=== PATIENT | female | born 1995 | race American Indian/Alaskan Native ===

== ENCOUNTER 2019-01-12 19:15 | Emergency (ER) | payer OTHER ==
--- NOTE | 2019-01-12 19:37 | Emergency Department Report ---
Chief Complaint: Vaginal Bleeding Stated Complaint: ABDOMINAL CRAMPS, VAGINAL BLEEDING Time Seen by Provider: 01/12/19 19:33 - HPI History of Present Illness: This is a 23 y.o. female that presents with vaginal bleeding and passing large clots during . LMP 12/07/18, A0. She is also complaining of abdominal pain. Patient reports bleeding started yesterday. She only had to wear panty liners yesterday but today bleeding increased to pads. She is changing pads every 30 minutes. - ROS Review of Systems: abdominal pain and vaginal bleeding. - Exam Vital Signs: Vital Signs 01/12/19 19:22 Temperature 97.9 F Pulse Rate 74 Respiratory 18 Rate Blood Pressure 108/79 [Right] O2 Sat by Pulse 99 Oximetry MSE screening note: Focused history and physical exam performed. Due to findings the following was ordered: Labs and US. Fast track for further evaluation. ED Disposition for MSE Condition: Stable
[2019-01-12 20:02] LABS: Basophils % (Auto) 0.5 % (0.0-1.8); Eosinophils # (Auto) 0.3 K/mm3 (0.0-0.4); Eosinophils % (Auto) 5.9 % (0.0-4.3); Hematocrit 32.3 % (30.3-42.9); Hemoglobin 10.4 gm/dl (10.1-14.3); Lymphocytes # (Auto) 1.4 K/mm3 (1.2-5.4); Mean Corpuscular HGB Conc 32 % (30-34); Mean Corpuscular Volume 75 fl (79-97); Monocytes # (Auto) 0.7 K/mm3 (0.0-0.8); Monocytes % (Auto) 14.3 % (0.0-7.3); Platelet Count 310 K/mm3 (140-440); Red Blood Count 4.32 M/mm3 (3.65-5.03); Red Cell Distribution Width 18.7 % (13.2-15.2)
[2019-01-12 20:22] LABS: Bacteria,Urine 1+ /HPF (Negative); Bilirubin,Urine NEG (Negative); Blood,Urine LG (Negative); Color,Urine Red (Yellow); RBC,Urine > 182.0 /HPF (0.0-6.0); Urobilinogen,Urine < 2.0 mg/dL (<2.0)
--- NOTE | 2019-01-12 21:33 | Emergency Department Report ---
ED HPI - General Chief complaint: Vaginal Bleeding Stated complaint: ABDOMINAL CRAMPS, VAGINAL BLEEDING Time Seen by Provider: 01/12/19 21:20 Source: patient Mode of arrival: Ambulatory Limitations: No Limitations - History of Present Illness Initial comments: Patient is a 23-year-old female with evidence of emergency with vaginal bleeding and abdominal cramping. Patient states crepitus or lower abdominal area. Patient states that she took home test January 06 and was positive. Patient has not received care. Patient has not had an ultrasound. Patient states the pain/cramps is 3-4 out of 10. Patient states they are worse with movement and better with rest. Patient states she is passing clots. MD Complaint: abdominal pain, vaginal bleeding, "contractions" -: Sudden Location: pelvis, abdomen Radiation: suprapubic Severity: moderate Severity scale (0 -10): 3 Quality: cramping Consistency: intermittent Improves with: rest Worsens with: movement Associated symptoms: vaginal bleeding Vaginal bleeding: clots :: Yes Pre- care: none - Related Data Previous Rx's Medication Instructions Recorded Last Taken Type Doxycycline [Vibramycin CAP] 100 mg PO Q12HR #20 capsule 07/02/15 Unknown Rx Ferrous Sulfate [Feosol 325 MG tab] 325 mg PO BID #60 tablet 07/02/15 Unknown Rx metroNIDAZOLE [Flagyl TAB] 500 mg PO Q12HR #20 tab 07/02/15 Unknown Rx Acetaminophen/Codeine [Tylenol 1 tab PO QHS PRN #15 tab 11/10/15 Unknown Rx /Codeine # 3 tab] Fluticasone [Flonase] 2 spray NS QDAY #1 bottle 11/10/15 Unknown Rx Ibuprofen [Motrin 800 MG tab] 800 mg PO TID PRN #21 tablet 11/10/15 Unknown Rx Sulfamethoxazole/Trimethoprim 1 each PO BID #20 tablet 11/10/15 Unknown Rx [Bactrim DS TAB] Cyclobenzaprine HCl [Flexeril 5 MG 5 mg PO TID #10 tab 08/19/17 Unknown Rx TAB] Naproxen [Naprosyn] 375 mg PO BID #10 tablet 08/19/17 Unknown Rx Allergies Allergy/AdvReac Type Severity Reaction Status Date / Time No Known Allergies Allergy Verified 08/19/17 15:17 ED Review of Systems ROS: Stated complaint: ABDOMINAL CRAMPS, VAGINAL BLEEDING Other details as noted in HPI Constitutional: denies: chills, fever Eyes: denies: eye pain, eye discharge, vision change ENT: denies: ear pain, throat pain Respiratory: denies: cough, shortness of breath, wheezing Cardiovascular: denies: chest pain, palpitations Endocrine: no symptoms reported Gastrointestinal: abdominal pain. denies: nausea, diarrhea Genitourinary: abnormal menses. denies: urgency, dysuria, discharge Musculoskeletal: denies: back pain, joint swelling, arthralgia Skin: denies: rash, lesions Neurological: denies: headache, weakness, paresthesias Psychiatric: denies: anxiety, depression Hematological/Lymphatic: denies: easy bleeding, easy bruising ED Past Medical Hx - Past Medical History Previous Medical History?: Yes Additional medical history: L knee injury, previous with no follow-up - Surgical History Past Surgical History?: Yes - Family History Family history: no significant - Social History Smoking Status: Former Smoker Substance Use Type: None - Medications Home Medications: Home Medications Medication Instructions Recorded Confirmed Last Taken Type Doxycycline [Vibramycin CAP] 100 mg PO Q12HR #20 capsule 07/02/15 07/09/16 Unknown Rx Ferrous Sulfate [Feosol 325 MG tab] 325 mg PO BID #60 tablet 07/02/15 07/09/16 Unknown Rx metroNIDAZOLE [Flagyl TAB] 500 mg PO Q12HR #20 tab 07/02/15 07/09/16 Unknown Rx Acetaminophen/Codeine [Tylenol 1 tab PO QHS PRN #15 tab 11/10/15 07/09/16 Unknown Rx /Codeine # 3 tab] Fluticasone [Flonase] 2 spray NS QDAY #1 bottle 11/10/15 07/09/16 Unknown Rx Ibuprofen [Motrin 800 MG tab] 800 mg PO TID PRN #21 tablet 11/10/15 07/09/16 Unknown Rx Sulfamethoxazole/Trimethoprim 1 each PO BID #20 tablet 11/10/15 07/09/16 Unknown Rx [Bactrim DS TAB] Cyclobenzaprine HCl [Flexeril 5 MG 5 mg PO TID #10 tab 08/19/17 Unknown Rx TAB] Naproxen [Naprosyn] 375 mg PO BID #10 tablet 08/19/17 Unknown Rx ED Physical Exam - General Limitations: No Limitations General appearance: alert, in no apparent distress - Head Head exam: Present: atraumatic, normocephalic - Eye Eye exam: Present: normal appearance - ENT ENT exam: Present: mucous membranes moist - Neck Neck exam: Present: normal inspection - Respiratory Respiratory exam: Present: normal lung sounds bilaterally. Absent: respiratory distress - Cardiovascular Cardiovascular Exam: Present: regular rate, normal rhythm. Absent: systolic murmur, diastolic murmur, rubs, gallop - GI/Abdominal GI/Abdominal exam: Present: soft, tenderness (suprapubic tenderness), normal bowel sounds - Extremities Exam Extremities exam: Present: normal inspection - Back Exam Back exam: Present: normal inspection - Neurological Exam Neurological exam: Present: alert, oriented X3 - Psychiatric Psychiatric exam: Present: normal affect, normal mood - Skin Skin exam: Present: warm, dry, intact, normal color. Absent: rash ED Course Vital Signs 01/12/19 01/12/19 19:22 21:33 Temperature 97.9 F 98.7 F Pulse Rate 74 75 Respiratory 18 16 Rate Blood Pressure 108/79 102/75 [Right] O2 Sat by Pulse 99 100 Oximetry - Reevaluation(s) Reevaluation #1: Patient states she is feeling better. Patient is pain-free. Patient will be discharged home. Discussed all results with patient. 01/12/19 23:56 Discussed all results to patient. Patient is stable for discharge. Patient given discharge instructions . patient voiced understanding of discharge instructions. 01/13/19 00:50 - Consultations Consultation #1: Discussed case with Dr. Milian. Dr. Milian states the patient is stable for discharge. Dr. Milian wants to see the patient at 10 AM on Tuesday and her [place] office. Information will be given to the patient 01/13/19 00:02 ED Medical Decision Making - Lab Data Result diagrams: 01/12/19 19:40 - Radiology Data Radiology results: report reviewed PROCEDURE: US OB TRANSVAGINAL TECHNIQUE: Real-time transabdominal and transvaginal sonography of the uterus, placenta, amniotic fluid, adnexa, and fetus was performed with image documentation. Measurements were obtained to determine age/size. M-mode Doppler was used to document heartbeat. ADDITIONAL GESTATION: None. HISTORY: vaginal bleeding during COMPARISONS: None . FINDINGS: Uterus size is 8.1 x 4.9 x 6.6 cm. The endometrial thickness is 5 mm. There is no evidence of a gestational sac on this study. Both ovaries are identified and have a normal size and appearance. There is some fluid in the lower pelvis. The evaluation may indicate multiple presentations including early , spontaneous and failure. Ectopic is not excluded on the basis of this signal examination. Follow-up studies may include serial beta-hCG levels and possibly repeat ultrasound IMPRESSION: The uterus and both ovaries have a normal appearance on today's study. There is no evidence of a gestational sac within the uterus. Minimal fluid identified in the lower pelvis. The findings may indicate multiple etiologies including early , spontaneous and failure. Ectopic is not entirely excluded on the basis of this single study. Follow-up examination should be obtained as described. - Medical Decision Making Patient is a 23-year-old female that presents to emergency with lower abdominal pain and vaginal bleeding. Patient had a positive home test. Patient had an ultrasound done which shows an empty uterus consistent with spontaneous . Patient instructed to follow up with [facility] in [address] Milian's office. Appointment set for patient. Patient's appointment is at [address] Milian reviewed case. Dr. Nguyễn states patient is stable for discharge. I discussed pain medication with the patient. Patient states she wants to take ibuprofen and Tylenol. Patient instructed to vitamin. Patient given discharge instructions. Patient is stable for discharge. Labs unremarkable. - Differential Diagnosis vaginal bleeding. Miscarriage. Abdominal pain. Critical care attestation.: If time is entered above; I have spent that time in minutes in the direct care of this critically ill patient, excluding procedure time. ED Disposition Clinical Impression: Vaginal bleeding, Spontaneous Abdominal pain Qualifiers: Abdominal location: lower abdomen, unspecified Qualified Code(s): R10.30 - Lower abdominal pain, unspecified Disposition: DC-01 TO HOME OR SELFCARE Is pt being admited?: No Does the pt Need Aspirin: No Condition: Stable Instructions: Spontaneous Miscarriage (ED), Abdominal Pain (ED) Additional Instructions: Patient follow-up with [facility], Dr. Milian at 10 AM on Tuesday. Patient to follow-up with primary care in 2-3 days. Patient to return to ER if condition worsens. Patient to take Tylenol or ibuprofen when necessary for pain. Patient to start a vitamin. Patient to increase water. Patient to rest. Referrals: JARED HORTAELMWOOD MD EDITH [Primary Care Provider] - 2-3 Days DAVID MILIAN MD [Staff Physician] - 2-3 Days Time of Disposition: 00:49
[2019-01-12 21:34] VITALS: BP 102/75
--- NOTE | 2019-01-12 23:41 | Ultrasound Report ---
PROCEDURE: US OB <= 14 WEEKS FETUS TECHNIQUE: Real-time transabdominal sonography of the uterus, placenta, amniotic fluid, adnexa, and fetus was performed with image documentation. Measurements were obtained to determine age/size. M-mode Doppler was used to document heartbeat. ADDITIONAL GESTATION: None. HISTORY: vaginal bleeding during COMPARISONS: None . FINDINGS: Uterus size is 8.1 x 4.9 x 6.6 cm. The endometrial thickness is 5 mm. There is no evidence of a gesta tional sac on this study. Both ovaries are identified and have a normal size and appearance. There is some fluid in the lower pelvis. The evaluation may indicate multiple presentations including early , spontaneous an d failure. Ectopic is not excluded on the basis of this signal examination. Follo w-up studies may include serial beta-hCG levels and possibly repeat ultrasound IMPRESSION: The uterus and both ovaries have a normal appearance on today's study. There is no eviden ce of a gestational sac within the uterus. Minimal fluid identified in the lower pelvis. The findings may indicate multiple etiologies including early , spontaneous and failu re. Ectopic is not entirely excluded on the basis of this single study. Follow-up examinati on should be obtained as described. This document is electronically signed by Katie Torres DO., January 12 2019 11:38:48 PM ET
--- NOTE | 2019-01-12 23:41 | Ultrasound Report ---
PROCEDURE: US OB TRANSVAGINAL TECHNIQUE: Real-time transabdominal and transvaginal sonography of the uterus, placenta, amniotic fl uid, adnexa, and fetus was performed with image documentation. Measurements were obtained to determin e age/size. M-mode Doppler was used to document heartbeat. ADDITIONAL GESTATION: None. HISTORY: vaginal bleeding during COMPARISONS: None . FINDINGS: Uterus size is 8.1 x 4.9 x 6.6 cm. The endometrial thickness is 5 mm. There is no evidence of a gesta tional sac on this study. Both ovaries are identified and have a normal size and appearance. There is some fluid in the lower pelvis. The evaluation may indicate multiple presentations including early , spontaneous an d failure. Ectopic is not excluded on the basis of this signal examination. Follo w-up studies may include serial beta-hCG levels and possibly repeat ultrasound IMPRESSION: The uterus and both ovaries have a normal appearance on today's study. There is no eviden ce of a gestational sac within the uterus. Minimal fluid identified in the lower pelvis. The findings may indicate multiple etiologies including early , spontaneous and failu re. Ectopic is not entirely excluded on the basis of this single study. Follow-up examinati on should be obtained as described. This document is electronically signed by Katie Torres DO., January 12 2019 11:39:24 PM ET
== END 2019-01-13 01:00 | disposition home or self-care (01) ==
LOC: ED 19:15
DX: O03.9 Complete or unspecified spontaneous abortion without complication (principal); O46.91 Antepartum hemorrhage, unspecified, first trimester; O26.891 Other specified pregnancy related conditions, first trimester; R10.30 Lower abdominal pain, unspecified; Z87.891 Personal history of nicotine dependence; Z3A.01 Less than 8 weeks gestation of pregnancy
CPT/HCPCS: 36415; 76801; 76817; 81001; 84702; 85025; 86850; 86900; 86901

== ENCOUNTER 2019-01-25 08:33 | Day surgery (SDC) | payer SELFPAY ==
--- NOTE | 2019-01-25 09:03 | Emergency Department Report ---
ED Female HPI - General Chief complaint: Abdominal Pain Stated complaint: STOMACH PAIN Source: patient Mode of arrival: Ambulatory Limitations: No Limitations - History of Present Illness Initial comments: This is a 23-year-old after Stateless female represents with abdominal pain and vaginal bleeding for 3 days. Patient states she was seen in this emergency room on January 12 until she was actively miscarriage in. Patient states she followed up with an [facility] at my [facility] last Tuesday and have not received hCG lab results. Patient states initially when she followed up in the hormone level was increasing and to follow-up in 1 week. She reports pain increased in intensity over the past 2 days so she followed up in the emergency room. Last menstrual period was 12/07/2018, A0. She denies dizziness, vaginal discharge, urinary frequency, urinary urgency, or dysuria. MD Complaint: vaginal bleeding, pelvic pain Onset/Timin -: days(s) Location: suprapubic Radiation: non-radiating Severity: severe Severity scale (0 -10): 9 Quality: sharp Consistency: intermittent Improves with: none Worsens with: none Are you Now?: Yes Last Menstrual Period: 12/07/18 EDC: 09/13/19 Associated Symptoms: vaginal bleeding, abdominal pain. denies: vaginal discharge, nausea/vomiting, fever/chills, headaches, loss of appetite, dysuria, hematuria, rash, seizure, shortness of breath, syncope, weakness - Related Data Sexually active: Yes : 2 Para: 1 A: 0 Previous Rx's Medication Instructions Recorded Last Taken Type Doxycycline [Vibramycin CAP] 100 mg PO Q12HR #20 capsule 07/02/15 Unknown Rx Ferrous Sulfate [Feosol 325 MG tab] 325 mg PO BID #60 tablet 07/02/15 Unknown Rx metroNIDAZOLE [Flagyl TAB] 500 mg PO Q12HR #20 tab 07/02/15 Unknown Rx Acetaminophen/Codeine [Tylenol 1 tab PO QHS PRN #15 tab 11/10/15 Unknown Rx /Codeine # 3 tab] Fluticasone [Flonase] 2 spray NS QDAY #1 bottle 11/10/15 Unknown Rx Ibuprofen [Motrin 800 MG tab] 800 mg PO TID PRN #21 tablet 11/10/15 Unknown Rx Sulfamethoxazole/Trimethoprim 1 each PO BID #20 tablet 11/10/15 Unknown Rx [Bactrim DS TAB] Cyclobenzaprine HCl [Flexeril 5 MG 5 mg PO TID #10 tab 08/19/17 Unknown Rx TAB] Naproxen [Naprosyn] 375 mg PO BID #10 tablet 08/19/17 Unknown Rx Ibuprofen [Motrin 800 MG tab] 800 mg PO TID PRN #30 tablet 01/25/19 Unknown Rx oxyCODONE /ACETAMINOPHEN [Percocet 1 - 2 tab PO Q6H PRN #7 tablet 01/25/19 Unknown Rx 5/325 mg] Allergies Allergy/AdvReac Type Severity Reaction Status Date / Time No Known Allergies Allergy Verified 08/19/17 15:17 ED Review of Systems ROS: Stated complaint: STOMACH PAIN Other details as noted in HPI Constitutional: denies: chills, fever Respiratory: denies: cough, shortness of breath, wheezing Cardiovascular: denies: chest pain, palpitations Gastrointestinal: abdominal pain. denies: nausea, diarrhea Genitourinary: abnormal menses (vaginal bleeding during ). denies: urg ency, dysuria, discharge Musculoskeletal: denies: back pain, joint swelling, arthralgia Skin: denies: rash, lesions Neurological: denies: headache, weakness, paresthesias Psychiatric: denies: anxiety, depression ED Past Medical Hx - Past Medical History Previous Medical History?: Yes Additional medical history: L knee injury, previous with no follow-up - Surgical History Past Surgical History?: No - Social History Smoking Status: Current Every Day Smoker Substance Use Type: None - Medications Home Medications: Home Medications Medication Instructions Recorded Confirmed Last Taken Type Doxycycline [Vibramycin CAP] 100 mg PO Q12HR #20 capsule 07/02/15 07/09/16 Unknown Rx Ferrous Sulfate [Feosol 325 MG tab] 325 mg PO BID #60 tablet 07/02/15 07/09/16 Unknown Rx metroNIDAZOLE [Flagyl TAB] 500 mg PO Q12HR #20 tab 07/02/15 07/09/16 Unknown Rx Acetaminophen/Codeine [Tylenol 1 tab PO QHS PRN #15 tab 11/10/15 07/09/16 Unknown Rx /Codeine # 3 tab] Fluticasone [Flonase] 2 spray NS QDAY #1 bottle 11/10/15 07/09/16 Unknown Rx Ibuprofen [Motrin 800 MG tab] 800 mg PO TID PRN #21 tablet 11/10/15 07/09/16 Unknown Rx Sulfamethoxazole/Trimethoprim 1 each PO BID #20 tablet 11/10/15 07/09/16 Unknown Rx [Bactrim DS TAB] Cyclobenzaprine HCl [Flexeril 5 MG 5 mg PO TID #10 tab 08/19/17 Unknown Rx TAB] Naproxen [Naprosyn] 375 mg PO BID #10 tablet 08/19/17 Unknown Rx Ibuprofen [Motrin 800 MG tab] 800 mg PO TID PRN #30 tablet 01/25/19 Unknown Rx oxyCODONE /ACETAMINOPHEN [Percocet 1 - 2 tab PO Q6H PRN #7 tablet 01/25/19 Unknown Rx 5/325 mg] ED Physical Exam - General Limitations: No Limitations General appearance: alert, in no apparent distress - Respiratory Respiratory exam: Present: normal lung sounds bilaterally. Absent: respiratory distress - Cardiovascular Cardiovascular Exam: Present: regular rate, normal rhythm. Absent: systolic murmur, diastolic murmur, rubs, gallop - GI/Abdominal GI/Abdominal exam: Present: soft, tenderness (right upper quadrant and left lower quadrant), normal bowel sounds. Absent: distended, guarding, rebound, rigid - Back Exam Back exam: Absent: CVA tenderness (R), CVA tenderness (L) - Neurological Exam Neurological exam: Present: alert, oriented X3 - Psychiatric Psychiatric exam: Present: normal affect, normal mood - Skin Skin exam: Present: warm, dry, intact, normal color. Absent: rash ED Course Vital Signs 01/25/19 01/25/19 01/25/19 08:39 12:05 14:10 Temperature 98 F 98.2 F Pulse Rate 82 74 Respiratory 16 18 18 Rate Blood Pressure 107/52 111/69 O2 Sat by Pulse 100 100 Oximetry 01/25/19 01/25/19 01/25/19 16:15 16:20 16:23 Temperature 97.1 F L Pulse Rate 97 H 81 Respiratory 16 18 18 Rate Blood Pressure 110/66 109/67 O2 Sat by Pulse 98 100 Oximetry 01/25/19 01/25/19 01/25/19 16:25 16:30 16:45 Temperature Pulse Rate 70 64 75 Respiratory 15 14 14 Rate Blood Pressure 107/68 106/70 109/70 O2 Sat by Pulse 100 100 100 Oximetry 01/25/19 01/25/1901/25/19 16:53 17:00 17:15 Temperature 98.3 F Pulse Rate 68 71 Respiratory 15 17 14 Rate Blood Pressure 104/68 108/64 O2 Sat by Pulse 100 100 Oximetry 01/25/19 01/25/19 01/25/19 17:25 17:53 18:30 Temperature 98.0 F Pulse Rate 76 Respiratory 16 14 16 Rate Blood Pressure 110/60 O2 Sat by Pulse 100 Oximetry ED Medical Decision Making - Lab Data Result diagrams: 01/25/19 10:23 Lab Results 01/25/19 01/25/19 01/25/19 Range/Units 09:04 09:09 10:23 WBC 4.9 (4.5-11.0) K/mm3 RBC 3.97 (3.65-5.03) M/mm3 Hgb 9.6 L (10.1-14.3) gm/dl Hct 29.7 L (30.3-42.9) % MCV 75 L (79-97) fl MCH 24 L (28-32) pg MCHC 32 (30-34) % RDW 18.5 H (13.2-15.2) % Plt Count 297 (140-440) K/mm3 Lymph % (Auto) 25.7 (13.4-35.0) % [place] % (Auto) 12.3 H (0.0-7.3) % Eos % (Auto) 4.6 H (0.0-4.3) % Baso % (Auto) 0.4 (0.0-1.8) % Lymph # 1.3 (1.2-5.4) K/mm3 [place] # 0.6 (0.0-0.8) K/mm3 Eos # 0.2 (0.0-0.4) K/mm3 Baso # 0.0 (0.0-0.1) K/mm3 Seg Neutrophils % 57.0 (40.0-70.0) % Seg Neutrophils # 2.8 (1.8-7.7) K/mm3 HCG, Quant 8775 H (0-4) mIU/mL Urine Color Yellow (Yellow) Urine Turbidity Clear (Clear) Urine pH 6.0 (5.0-7.0) Ur Specific [place] 1.023 (1.003-1.030) Urine Protein <15 mg/dl (Negative) mg/dL Urine Glucose (UA) Neg (Negative) mg/dL Urine Ketones Neg (Negative) mg/dL Urine Blood Neg (Negative) Urine Nitrite Neg (Negative) Urine Bilirubin Neg (Negative) Urine Urobilinogen < 2.0 (<2.0) mg/dL Ur Leukocyte Esterase Tr (Negative) Urine WBC (Auto) 5.0 (0.0-6.0) /HPF Urine RBC (Auto) 1.0 (0.0-6.0) /HPF U Epithel Cells (Auto) 2.0 (0-13.0) /HPF Blood Type Antibody Screen 01/25/19 Range/Units 14:25 WBC (4.5-11.0) K/mm3 RBC (3.65-5.03) M/mm3 Hgb (10.1-14.3) gm/dl Hct (30.3-42.9) % MCV (79-97) fl MCH (28-32) pg MCHC (30-34) % RDW (13.2-15.2) % Plt Count (140-440) K/mm3 Lymph % (Auto) (13.4-35.0) % [place] % (Auto) (0.0-7.3) % Eos % (Auto) (0.0-4.3) % Baso % (Auto) (0.0-1.8) % Lymph # (1.2-5.4) K/mm3 [place] # (0.0-0.8) K/mm3 Eos # (0.0-0.4) K/mm3 Baso # (0.0-0.1) K/mm3 Seg Neutrophils % (40.0-70.0) % Seg Neutrophils # (1.8-7.7) K/mm3 HCG, Quant (0-4) mIU/mL Urine Color (Yellow) Urine Turbidity (Clear) Urine pH (5.0-7.0) Ur Specific [place] (1.003-1.030) Urine Protein (Negative) mg/dL Urine Glucose (UA) (Negative) mg/dL Urine Ketones (Negative) mg/dL Urine Blood (Negative) Urine Nitrite (Negative) Urine Bilirubin (Negative) Urine Urobilinogen (<2.0) mg/dL Ur Leukocyte Esterase (Negative) Urine WBC (Auto) (0.0-6.0) /HPF Urine RBC (Auto) (0.0-6.0) /HPF U Epithel Cells (Auto) (0-13.0) /HPF Blood Type B POSITIVE Antibody Screen Negative - Radiology Data Radiology results: report reviewed Pelvic and transvaginal sonography: History: Vaginal bleeding. Rule out ectopic. Findings: Uterus measures 10.4 x 4.5 x 5.8 cm. Endometrial thickness 4 mm. No intrauterine gestation. There is ectopic gestation noted at the left adnexa. pole and yolk sac is identified with heart rate at 135 per minute. CRL of the fetus is 9 mm corresponding to 6 weeks and 6 days of gestation. Right ovary 3.6 x 2 x 3.5 cm. Corpus luteal cyst measures 1.9 cm. Left ovary 3.2 x 1.6 x 2.4 cm. Impression: Ectopic gestation left adnexa adjacent to the ovary. Additional findings as detailed above. Sindy Nayan was informed of the findings at 11:46 AM on 01/25/19. - Medical Decision Making This is a 23 y.o. female presents with vaginal bleeding and abdominal pain during for one week. Patient was examined by me. Vitals are normal and patient is in slight distress. Given 1000 mg by mouth once while in ER. Obtained a urinalysis, CBC, hCG quant, and OB ultrasound. Quant 8775 all other labs unremarkable. Ectopic gestation left adnexa adjacent to the ovary. Additional findings as detailed above. Sindy Spicer was informed of the findings at 11:46 AM on 01/25/19. Patient is followed by my [employer] who were consulted. Dr. Milian agreed to admit patient for surgery. Critical care attestation.: If time is entered above; I have spent that time in minutes in the direct care of this critically ill patient, excluding procedure time. ED Disposition Clinical Impression: Vaginal bleeding affecting early Ectopic , tubal Qualifiers: Intrauterine status: without intrauterine Laterality: left Qualified Code(s): O00.102 - Left tubal without intrauterine Abdominal pain Qualifiers: Abdominal location: lower abdomen, unspecified Qualified Code(s): R10.30 - Lower abdominal pain, unspecified Disposition: OP ADMIT IP TO THIS HOSP Is pt being admited?: Yes Condition: Stable Instructions: Ibuprofen (By mouth), Oxycodone/Acetaminophen (By mouth), Exploratory Laparoscopy (DC) Additional Instructions: NOTHING PER VAGINA, NO SEX, NO DOUCHE, NO TAMPOONS, NO BATH. MAY SHOWER AND WASH HAIR. USE SANITARY PADS. NO DRIVING. WOUND:OPEN TO AIR, KEEP CLEAN AND DRY. NO HEAVY LIFTING GREATER THAN 25 POUNDS. INSTRUCTIONS:YOUR LEFT FALLOPIAN TUBE APPEARS TO BE BLOCKED. PLEASE DO NOT GET UNTIL YOUR LEFT FALLOPIAN TUBE HAS BEEN EVALUATED TO DETERMINED IT IS NOT BLOCKED. TORADOL GIVEN AT 4PM PERCOCET GIVEN AT 553PM(1) Prescriptions: Ibuprofen [Motrin 800 MG tab] 800 mg PO TID PRN #30 tablet PRN Reason: Pain oxyCODONE /ACETAMINOPHEN [Percocet 5/325 mg] 1 - 2 tab PO Q6H PRN #7 tablet PRN Reason: Pain Referrals: DAVID MILIAN MD [Staff Physician] - 7 Days LINCOLN KEEGAN HORTA MD [Primary Care Provider] - 3-5 Days Forms: [facility]
[2019-01-25 09:23] LABS: Bilirubin,Urine NEG (Negative); Blood,Urine NEG (Negative); Color,Urine Yellow (Yellow); Protein,Urine <15 mg/dL mg/dL (Negative); Urobilinogen,Urine < 2.0 mg/dL (<2.0)
[2019-01-25 10:38] LABS: Basophils % (Auto) 0.4 % (0.0-1.8); Eosinophils # (Auto) 0.2 K/mm3 (0.0-0.4); Eosinophils % (Auto) 4.6 % (0.0-4.3); Hematocrit 29.7 % (30.3-42.9); Hemoglobin 9.6 gm/dl (10.1-14.3); Lymphocytes # (Auto) 1.3 K/mm3 (1.2-5.4); Lymphocytes % (Auto) 25.7 % (13.4-35.0); Mean Corpuscular HGB Conc 32 % (30-34); Mean Corpuscular Volume 75 fl (79-97); Monocytes # (Auto) 0.6 K/mm3 (0.0-0.8); Monocytes % (Auto) 12.3 % (0.0-7.3); Platelet Count 297 K/mm3 (140-440); Red Blood Count 3.97 M/mm3 (3.65-5.03); Red Cell Distribution Width 18.5 % (13.2-15.2)
--- NOTE | 2019-01-25 11:47 | Ultrasound Report ---
Pelvic and transvaginal sonography: History: Vaginal bleeding. Rule out ectopic. Findings: Uterus measures 10.4 x 4.5 x 5.8 cm. Endometrial thickness 4 mm. No intrauterine gestation. There is ectopic gestation noted at the left adnexa. pole and yolk sac is identified with heart rate at 135 per minute. CRL of the fetus is 9 mm corresponding to 6 weeks and 6 days of gestation. Right ovary 3.6 x 2 x 3.5 cm. Corpus luteal cyst measures 1.9 cm. Left ovary 3.2 x 1.6 x 2.4 cm. Impression: Ectopic gestation left adnexa adjacent to the ovary. Additional findings as detailed above. Sindy Spicer was informed of the findings at 11:46 AM on 01/25/19.
[2019-01-25] MEDS ORDERED: TYLENOL PO ONE (12:01)
[2019-01-25] MEDS ORDERED: TYLENOL ONE (12:04)
--- NOTE | 2019-01-25 13:51 | History and Physical Report ---
History of Present Illness Date of examination: 01/25/19 Chief complaint: Ectopic Past History Past Medical History: no pertinent history Past Surgical History: section Social history: no significant social history - Obstetrical History Expected Date of Delivery: 09/13/19 Actual Gestation: 7 Week(s) 0 Day(s) : 2 Para: 1 Medications and Allergies Allergies Allergy/AdvReac Type Severity Reaction Status Date / Time No Known Allergies Allergy Verified 08/19/17 15:17 Home Medications Medication Instructions Recorded Confirmed Last Taken Type Doxycycline [Vibramycin CAP] 100 mg PO Q12HR #20 capsule 07/02/15 07/09/16 Unknown Rx Ferrous Sulfate [Feosol 325 MG tab] 325 mg PO BID #60 tablet 07/02/15 07/09/16 Unknown Rx metroNIDAZOLE [Flagyl TAB] 500 mg PO Q12HR #20 tab 07/02/15 07/09/16 Unknown Rx Acetaminophen/Codeine [Tylenol 1 tab PO QHS PRN #15 tab 11/10/15 07/09/16 Unknown Rx /Codeine # 3 tab] Fluticasone [Flonase] 2 spray NS QDAY #1 bottle 11/10/15 07/09/16 Unknown Rx Ibuprofen [Motrin 800 MG tab] 800 mg PO TID PRN #21 tablet 11/10/15 07/09/16 Unknown Rx Sulfamethoxazole/Trimethoprim 1 each PO BID #20 tablet 11/10/15 07/09/16 Unknown Rx [Bactrim DS TAB] Cyclobenzaprine HCl [Flexeril 5 MG 5 mg PO TID #10 tab 08/19/17 Unknown Rx TAB] Naproxen [Naprosyn] 375 mg PO BID #10 tablet 08/19/17 Unknown Rx Active Meds: Active Medications Cefazolin Sodium (Ancef/Sterile Water 2 Gm/20 Ml) 2 gm in 20 mls @ 80 mls/hr IV PREOP NR; Protocol - Vital Signs Vital signs: Vital Signs Temp Pulse Resp BP Pulse Ox 98 F 82 16 107/52 100 01/25/19 08:39 01/25/19 08:39 01/25/19 08:39 01/25/19 08:39 01/25/19 08:39 Temp Pulse Resp BP Pulse Ox 98 F 82 18 107/52 100 01/25/19 08:39 01/25/19 08:39 01/25/19 12:05 01/25/19 08:39 01/25/19 08:39 Results Result Diagrams: 01/25/19 10:23 Abnormal lab results 01/25/19 01/25/19 Range/Units 09:09 10:23 Hgb 9.6 L (10.1-14.3) gm/dl Hct 29.7 L (30.3-42.9) % MCV 75 L (79-97) fl MCH 24 L (28-32) pg RDW 18.5 H (13.2-15.2) % [place] % (Auto) 12.3 H (0.0-7.3) % Eos % (Auto) 4.6 H (0.0-4.3) % HCG, Quant 8775 H (0-4) mIU/mL All other labs normal. Ultrasound: report reviewed, image reviewed Assessment and Plan - Patient Problems (1) Ectopic Current Visit: Yes Status: Acute Qualifiers: Location of ectopic : unspecified location Intrauterine status: without intrauterine Qualified Code(s): O00.90 - Unspecified ectopic without intrauterine Plan to address problem: TVUS results discussed with patient. She was informed is not a candidate for medical treatment due to + fht's, QBHCG >5000, probably blood in her abdomen. Risks associated with laparoscopy were discussed, including but not limited to, bleeding, infection, injury to bowel/bladder or major vascular injury. She is aw are she may require an open procedure to perform the surgery. She was informed her tube will be removed. Questions were encouraged and answered, consents were reviewed and signed, she voiced understanding and desires to proceed with surgical intervention
[2019-01-25] MEDS ORDERED: ANCEF/STERILE WATER 2 GM/20 ML 2 GM/20 ML SYRINGE IV NR (14:00)
[2019-01-25] MEDS ORDERED: SUBLIMAZE ONE (14:03)
[2019-01-25] MEDS ORDERED: ZOFRAN ONE ×2 (14:03→15:02)
[2019-01-25] MEDS ORDERED: DECADRON ONE (14:03)
[2019-01-25] MEDS ORDERED: DIPRIVAN 10 MG/ML IV ONE (14:04)
[2019-01-25] MEDS ORDERED: MARCAINE 0.5% INFILTRATI ONE ×2 (14:16→15:23)
--- NOTE | 2019-01-25 14:33 | Anesthesia Consultation ---
Anesthesia Consult and Med Hx Date of service: 01/25/19 - Airway Anesthetic Teeth Evaluation: Good ROM Head & Neck: Adequate Mental/Hyoid Distance: Adequate Mallampati Class: Class II Intubation Access Assessment: Good - Pulmonary Exam CTA: Yes - Cardiac Exam Cardiac Exam: RRR - Pre-Operative Health Status ASA Pre-Surgery Classification: ASA2, Emergency Proposed Anesthetic Plan: General
--- NOTE | 2019-01-25 14:33 | Anesthesia Day of Surgery ---
Anesthesia Day of Surgery - Day of Surgery Patient Examined: Yes Patient H&P Reviewed: Yes Patient is NPO: Yes Beta Blockers: No Cardiac Clearance: No Pulmonary Clearance: No
[2019-01-25] MEDS ORDERED: LACTATED RINGERS 1,000 ML ONE (14:39)
[2019-01-25] MEDS ORDERED: ANCEF/STERILE WATER 2 GM/20 ML 2 GM/20 ML SYRINGE IV ONE (14:39)
[2019-01-25] MEDS ORDERED: NARCAN 0.4 MG/1 ML IV PRN (15:00)
[2019-01-25] MEDS ORDERED: DEMEROL IV PRN (15:00)
[2019-01-25] MEDS ORDERED: SUBLIMAZE IV PRN (15:00)
[2019-01-25] MEDS ORDERED: LACTATED RINGERS 1,000 ML IV SCH (15:00)
[2019-01-25] MEDS ORDERED: DILAUDID IV PRN (15:00)
[2019-01-25] MEDS ORDERED: XYLOCAINE MPF 2% ONE (15:20)
[2019-01-25] MEDS ORDERED: ZEMURON IV ONE (15:20)
[2019-01-25] MEDS ORDERED: ROBINUL ONE (15:55)
[2019-01-25] MEDS ORDERED: BLOXIVERZ ONE (15:55)
--- NOTE | 2019-01-25 16:13 | Operative Report ---
Operative Report Operative Report: Date: 01/25/2019 Preoperative diagnosis: 1. Ectopic Postoperative diagnosis: 1. Right ectopic tubal Procedure: 1. Laparoscopic partial right salpingectomy Surgeon: Conchita Milian MD Gm Video: Anesthesiologist: [] Anesthesia: Gen. endotracheal anesthesia EBL: Minimal Findings: Large right ectopic tubal . Small amount of blood in posterior cul-de-sac, grossly normal uterus and bilateral ovaries. Possible occlusion of left fallopian tube. Procedure: After risks, benefits, consequences, alternatives and complications were discussed patient voiced her understanding and desire to proceed, she was taken to the OR and placed in the supine position. After general anesthesia was induced, she was placed in the dorsal lithotomy position. Exam under anesthesia was unremarkable. She was then prepped and draped in the usual sterile fashion. After a timeout was performed, a Baltazar catheter was introduced into the bladder with drainage of clear yellow urine. A operative speculum was introduced into the vagina, and anterior lip cervix was grasped with a single- toothed tenaculum. The uterus was sounded to 8 cm. The cervix was progressively dilated to allow the Sargis uterine manipulator. The tenaculum and speculum were removed. Sterile gloves were placed and attention was turned to the abdomen. An supraumbilical incision was made and a 5 mm Optiview trocar with scope and camera attached were placed through the incision. The abdomen wa s entered under direct visualization. The abdomen was then insufflated. No bowel, bladder, ureteral, or major vessel injury was noted. She was then placed in steep Trendelenburg position. The above findings were noted. An additional 8mm trocar was placed through a suprapubic midline incision made approximately 2 cm superior to the symphysis pubis. A 8 mm trocar was introduced under direct visualization. No bowel, bladder or ureteral or major vascular injury was noted. An additional 5 mm trocar was placed in the right lower lateral quadrant through an incision under direct visualization. Again no bowel bladder ureteral major vessel injury was noted. The uterus was elevated, using the 5 mm [place] LigaSure device right partial salpingectomy involving the ectopic was performed. The suprapubic incision was expanded and an 11 mm trocar was introduced. The the tube with the ectopic was placed in an Endo catch bag and removed through the incision. Attention was turned to the adnexa where hemostasis was noted. Again no bowel, bladder or ureteral or major vascular injury was noted. The CO2 was released from the abdomen under direct visualization. All areas appeared to be hemostatic again no obvious evidence of bowel, bladder, ureteral or vascular injury. At this point the procedure was ended. The right lateral trocar as well as the suprapubic trocar were removed. The remaining CO2 in the abdomen was released. Patient was taken out of Trendelenburg position. A supraumbilical trocar was then removed. The fascia the suprapubic incisions were reapproximated using 0 Vicryl in a [id number] fashion. The incisions were reapproximated using 4-0 Monopril in a subcuticular manner. The incisions were then infused with half percent Marcaine without epinephrine. Then attention was turned to the vagina where the uterine manipulator was removed. No bleeding was noted from the vagina. The Baltazar catheter was then removed, clear yellow urine was noted to drain into the Baltazar tubing as well as into the bag. Counts were correct 3 patient tolerated procedure well was taken to recovery in stable condition
--- NOTE | 2019-01-25 16:28 | Discharge Summary ---
Providers - Providers Date of discharge: 01/25/19 Attending physician: YAEL SWAIN MD Primary care physician: [facility] MD JARED Hospitalization Condition: Good Procedures: Partial right salpingectomy Disposition: - TO HOME OR SELFCARE - Discharge Diagnoses (1) Ectopic Status: Acute Qualifiers: Location of ectopic : unspecified location Intrauterine status: without intrauterine Qualified Code(s): O00.90 - Unspecified ectopic without intrauterine Core Measure Documentation - Palliative Care Palliative Care/ Comfort Measures: Not Applicable - Core Measures Any of the following diagnoses?: none Exam - Physical Exam Narrative exam: B + - Constitutional Vitals: Temp Pulse Resp BP Pulse Ox 98.2 F 74 18 111/69 100 01/25/19 14:10 01/25/19 14:10 01/25/19 14:10 01/25/19 14:10 01/25/19 14:10 General appearance: Present: no acute distress - Respiratory Respiratory effort: normal - Cardiovascular Rhythm: regular Plan Activity: other (No sex. No driving) Weight Bearing Status: Weight Bear as Tolerated Diet: regular Wound: open to air, keep clean and dry Special Instructions: no heavy lifting (Greater than 25lbs) Additional Instructions: Your left fallopian tube appears to be blocked. Please do not get until your left fallopin tube has been evaluated to determine it is not blocked. Follow up with: KEEGAN DENT MD [Primary Care Provider] - 3-5 Days DAVID MAE MD [Staff Physician] - 7 Days Prescriptions: RX: Ibuprofen [Motrin 800 MG tab] 800 mg PO TID PRN #30 tablet PRN Reason: Pain RX: oxyCODONE /ACETAMINOPHEN [Percocet 5/325 mg] 1 - 2 tab PO Q6H PRN #7 tablet PRN Reason: Pain
[2019-01-25] MEDS ORDERED: PERCOCET 5/325 PO PRN (17:24)
[2019-01-25 17:27] VITALS: BP 110/60
== END 2019-01-25 18:30 | disposition home or self-care (01) ==
LOC: ED 08:33 → LDOR 08:33 → EDSTATUS 15:18 → LDOR 18:30
PROVIDERS: ATTEND Emergency Medicine
DX: O00.101 Right tubal pregnancy without intrauterine pregnancy (principal); F17.210 Nicotine dependence, cigarettes, uncomplicated; Z79.899 Other long term (current) drug therapy; Z79.84 Long term (current) use of oral hypoglycemic drugs
CPT/HCPCS: 36415; 59151; 76801; 76817; 81001; 84702; 85025; 86850; 86900; 86901; 88305; J0690; J1100; J2175; J2405; J2704; J2710; J3010; J7120

== ENCOUNTER 2020-09-01 23:21 | Emergency (ER) | payer BC ==
[2020-09-01 23:54] VITALS: BP 112/66
[2020-09-02] MEDS ORDERED: SULFAMETHOXAZOLE/TRIMETHOPRIM 800/160MG DS TAB PO ONE (01:33)
[2020-09-02] MEDS ORDERED: predniSONE 20 MG TAB PO ONE (01:33)
[2020-09-02] MEDS ORDERED: ACETAMINOPHEN 500 MG TAB PO ONE (01:33)
[2020-09-02] MEDS ORDERED: IBUPROFEN 600 MG TAB PO ONE (01:33)
--- NOTE | 2020-09-02 01:39 | Emergency Department Report ---
ED General Adult HPI - General Chief complaint: Animal Bite Stated complaint: INSECT BITE LEFT KNEE Source: patient Mode of arrival: Ambulatory Limitations: No Limitations - History of Present Illness Initial comments: Patient is a 25-year-old -[place] female with no past medical history presents to the ED with complaint of acute onset persistent severe painful mild erythematous swollen nonfluctuant rash on left lower leg after being bitten by unknown insect 2 days ago. Patient states that in the last 12 hours, the pain and the swelling of worsened. Patient denies fever, chills, nausea, vomiting, numbness and tingling or weakness of left lower leg, dizziness, syncope, traumatic injury, chest pain or shortness of breath. MD Complaint: Left lower leg erythematous rash with pain from insect bite -: Sudden, days(s) (2) Location: lower extremity (left lower) Radiation: non-radiation Severity scale (0 -10): 7 Quality: burning, aching, sharp Consistency: constant Improves with: none Worsens with: movement Associated Symptoms: denies other symptoms, rash (Erythematous maculopapular painful rash on left lower leg). denies: confusion, chest pain, cough, diaphoresis, fever/chills, headaches, loss of appetite, malaise, nausea/vomiting, seizure, shortness of breath, syncope, weakness Treatments Prior to Arrival: none - Related Data Previous Rx's Medication Instructions Recorded Last Taken Type DOXYCYCLINE Hyclate [Vibramycin 100 mg PO Q12HR #20 capsule 07/02/15 Unknown Rx CAP] Ferrous Sulfate [Feosol 325 MG tab] 325 mg PO BID #60 tablet 07/02/15 Unknown Rx metroNIDAZOLE [Flagyl TAB] 500 mg PO Q12HR #20 tab 07/02/15 Unknown Rx Acetaminophen/Codeine [Tylenol 1 tab PO QHS PRN #15 tab 11/10/15 Unknown Rx /Codeine # 3 tab] Fluticasone [Flonase] 2 spray NS QDAY #1 bottle 11/10/15 Unknown Rx Ibuprofen [Motrin 800 MG tab] 800 mg PO TID PRN #21 tablet 11/10/15 Unknown Rx Sulfamethoxazole/Trimethoprim 1 each PO BID #20 tablet 11/10/15 Unknown Rx [Bactrim DS TAB] Cyclobenzaprine HCl [Flexeril 5 MG 5 mg PO TID #10 tab 08/19/17 Unknown Rx TAB] Naproxen [Naprosyn] 375 mg PO BID #10 tablet 08/19/17 Unknown Rx Ibuprofen [Motrin 800 MG tab] 800 mg PO TID PRN #30 tablet 01/25/19 Unknown Rx oxyCODONE /ACETAMINOPHEN [Percocet 1 - 2 tab PO Q6H PRN #7 tablet 01/25/19 Unknown Rx 5/325 mg] Ibuprofen [Motrin] 800 mg PO Q8HR PRN #30 tablet 09/02/20 Unknown Rx Sulfamethoxazole/Trimethoprim 1 each PO Q12H #20 tablet 09/02/20 Unknown Rx [Bactrim DS TAB] predniSONE [Deltasone] 40 mg PO QDAY #10 tab 09/02/20 Unknown Rx Allergies Allergy/AdvReac Type Severity Reaction Status Date / Time No Known Allergies Allergy Verified 08/19/17 15:17 ED Review of Systems ROS: Stated complaint: INSECT BITE LEFT KNEE Other details as noted in HPI Constitutional: denies: chills, fever Eyes: denies: eye pain, eye discharge, vision change ENT: denies: ear pain, throat pain Respiratory: denies: cough, shortness of breath, wheezing Cardiovascular: denies: chest pain, palpitations Endocrine: no symptoms reported Gastrointestinal: denies: abdominal pain, nausea, diarrhea Genitourinary: denies: urgency, dysuria, discharge Musculoskeletal: arthralgia (Painful swollen erythematous macular papular rash on left lower leg). denies: back pain, joint swelling Skin: rash (Erythematous maculopapular nonfluctuant painful rash with mild swelling on the left lower leg), change in color, pruritus. denies: lesions Neurological: denies: headache, weakness, paresthesias Psychiatric: denies: anxiety, depression Hematological/Lymphatic: denies: easy bleeding, easy bruising ED Past Medical Hx - Past Medical History Previous Medical History?: No Additional medical history: L knee injury, previous with no follow-up - Surgical History Past Surgical History?: Yes Additional Surgical History: , fallopian tube removal - Social History Smoking Status: Current Some Day Smoker - Medications Home Medications: Home Medications Medication Instructions Recorded Confirmed Last Taken Type DOXYCYCLINE Hyclate [Vibramycin 100 mg PO Q12HR #20 capsule 07/02/15 07/09/16 Unknown Rx CAP] Ferrous Sulfate [Feosol 325 MG tab] 325 mg PO BID #60 tablet 07/02/15 07/09/16 Unknown Rx metroNIDAZOLE [Flagyl TAB] 500 mg PO Q12HR #20 tab 07/02/15 07/09/16 Unknown Rx Acetaminophen/Codeine [Tylenol 1 tab PO QHS PRN #15 tab 11/10/15 07/09/16 Unknown Rx /Codeine # 3 tab] Fluticasone [Flonase] 2 spray NS QDAY #1 bottle 11/10/15 07/09/16 Unknown Rx Ibuprofen [Motrin 800 MG tab] 800 mg PO TID PRN #21 tablet 11/10/15 07/09/16 Unknown Rx Sulfamethoxazole/Trimethoprim 1 each PO BID #20 tablet 11/10/15 07/09/16 Unknown Rx [Bactrim DS TAB] Cyclobenzaprine HCl [Flexeril 5 MG 5 mg PO TID #10 tab 08/19/17 Unknown Rx TAB] Naproxen [Naprosyn] 375 mg PO BID #10 tablet 08/19/17 Unknown Rx Ibuprofen [Motrin 800 MG tab] 800 mg PO TID PRN #30 tablet 01/25/19 Unknown Rx oxyCODONE /ACETAMINOPHEN [Percocet 1 - 2 tab PO Q6H PRN #7 tablet 01/25/19 Unknown Rx 5/325 mg] Ibuprofen [Motrin] 800 mg PO Q8HR PRN #30 tablet 09/02/20 Unknown Rx Sulfamethoxazole/Trimethoprim 1 each PO Q12H #20 tablet 09/02/20 Unknown Rx [Bactrim DS TAB] predniSONE [Deltasone] 40 mg PO QDAY #10 tab 09/02/20 Unknown Rx ED Physical Exam - General Limitations: No Limitations General appearance: alert, in no apparent distress - Head Head exam: Present: atraumatic, normocephalic - Eye Eye exam: Present: normal appearance, PERRL, EOMI Pupils: Present: normal accommodation - ENT ENT exam: Present: normal exam, normal orophraynx, mucous membranes moist, TM's normal bilaterally, normal external ear exam - Neck Neck exam: Present: normal inspection, full ROM - Respiratory Respiratory exam: Present: normal lung sounds bilaterally. Absent: respiratory distress, wheezes, rales, rhonchi, chest wall tenderness, decreased breath sounds, prolonged expiratory - Cardiovascular Cardiovascular Exam: Present: regular rate, normal rhythm, normal heart sounds. Absent: systolic murmur, diastolic murmur, rubs, gallop - GI/Abdominal GI/Abdominal exam: Present: soft, normal bowel sounds. Absent: distended, tenderness, guarding, hyperactive bowel sounds, hypoactive bowel sounds, organomegaly - Extremities Exam Extremities exam: Present: normal inspection, full ROM, tenderness (Palpable left lower leg tenderness due to erythematous maculopapular rash), normal capillary refill - Back Exam Back exam: Present: normal inspection, full ROM. Absent: tenderness, CVA tenderness (R), CVA tenderness (L), muscle spasm, paraspinal tenderness, vertebral tenderness - Neurological Exam Neurological exam: Present: alert, oriented X3, CN II-XII intact, normal gait, reflexes normal - Psychiatric Psychiatric exam: Present: normal affect, normal mood - Skin Skin exam: Present: warm, dry, intact, normal color, rash (Erythematous maculopapular nonfluctuant rash with tenderness on left lower leg), erythema ED Course Vital Signs 09/01/20 23:47 Temperature 97.8 F Pulse Rate 89 Respiratory 16 Rate Blood Pressure 112/66 O2 Sat by Pulse 100 Oximetry ED Medical Decision Making - Medical Decision Making This is a 25-year-old -[place] female with no past medical history presents to the ED with complaint of acute onset persistent severe painful mild erythematous swollen nonfluctuant rash on left lower leg after being bitten by unknown insect 2 days ago. Patient states that in the last 12 hours, the pain and the swelling of worsened. In the ED, patient is alert and oriented x3 and is not in distress. Patient was treated for pain in the ED and also given initial oral antibiotics. Patient was discharged home on pain medications and antibiotics and advised to follow-up with her primary care physician in 7 to 10 days for reevaluation or return to the ED immediately if symptoms get worse. - Differential Diagnosis Cellulitis; Folliculitis; Insect bite; allergic reaction Critical care attestation.: If time is entered above; I have spent that time in minutes in the direct care of this critically ill patient, excluding procedure time. ED Disposition Clinical Impression: Cellulitis of left lower extremity Insect bite of left lower leg with infection Qualifiers: Encounter type: initial encounter Qualified Code(s): S80.862A - Insect bite (nonvenomous), left lower leg, initial encounter; L08.9 - Local infection of the skin and subcutaneous tissue, unspecified; W57.XXXA - Bitten or stung by nonvenomous insect and other nonvenomous arthropods, initial encounter Disposition: TO HOME OR SELFCARE Is pt being admited?: No Does the pt Need Aspirin: No Condition: Stable Instructions: Insect Bite, Adult, [id number], Cellulitis, Adult, Cellulitis, Adult, [id number] Additional Instructions: Take medication with food, drink plenty of fluids and follow-up with your primary care physician in 7 to 10 days for reevaluation. Return to the ED immediately if symptoms get worse. Prescriptions: Sulfamethoxazole/Trimethoprim [Bactrim DS TAB] 1 each PO Q12H #20 tablet predniSONE [Deltasone] 40 mg PO QDAY #10 tab Ibuprofen [Motrin] 800 mg PO Q8HR PRN #30 tablet PRN Reason: Pain , Severe (7-10) Referrals: [facility] [Provider Group] - 7-10 days Forms: Work/School Release Form(ED) Time of Disposition: 01:43 Print Language: SWEDISH
== END 2020-09-02 02:15 | disposition home or self-care (01) ==
LOC: ED 23:21
DX: S80.862A Insect bite (nonvenomous), left lower leg, initial encounter (principal); L03.116 Cellulitis of left lower limb; F17.200 Nicotine dependence, unspecified, uncomplicated; Z98.890 Other specified postprocedural states; Z79.1 Long term (current) use of non-steroidal anti-inflammatories (NSAID); Z79.899 Other long term (current) drug therapy; W57.XXXA Bitten or stung by nonvenomous insect and other nonvenomous arthropods, initial encounter; Y93.89 Activity, other specified; Y92.89 Other specified places as the place of occurrence of the external cause; Y99.8 Other external cause status
CPT/HCPCS: 99282; J7512